=== PATIENT | female | born 2000 | race Two or more races ===

== ENCOUNTER 2022-05-31 22:15 | Emergency (ER) | payer MEDICAID ==
[~2022-05-31] VITALS: Ht 165.1 cm; Wt 68.2 kg
[2022-05-31] MEDS ORDERED: METOCLOPRAMIDE HCL 5MG/ml INJ 2ml VIAL IM ONE (22:45)
[2022-05-31] MEDS ORDERED: diphenhdrAMINE HCL 50 MG/1 ML VL IM ONE (22:45)
[2022-05-31] MEDS ORDERED: KETOROLAC TROMETH 60MG/2ML VIAL IM ONE (22:45)
[2022-06-01 04:35] VITALS: BP 120/68
== END 2022-06-01 04:38 | disposition home or self-care (01) ==
LOC: ER 22:17
DX: G43.909 Migraine, unspecified, not intractable, without status migrainosus (principal)
CPT/HCPCS: 70450; 96372; 99284; J1200; J1885; J2765

== ENCOUNTER 2022-11-20 23:13 | Emergency (ER) | payer MEDICAID, OTHER ==
[~2022-11-20] VITALS: Ht 165.1 cm; Wt 74.0 kg
[2022-11-21 00:09] VITALS: BP 134/76
[2022-11-21] MEDS ORDERED: BENZLOZ2 MT (01:27)
[2022-11-21] MEDS ORDERED: ALBUAER3 IN (01:27)
[2022-11-21] MEDS ORDERED: PRED20TA2 PO (01:27)
[2022-11-21] MEDS ORDERED: CLIN300C70 PO (01:27)
[2022-11-21] MEDS ORDERED: DexAMETHasone SOD PHOS 10MG/1ML VIAL INJ IM ONE (01:30)
[2022-11-21] MEDS ORDERED: cefTRIAXone SOD 1,000 MG VL IM ONE (01:30)
== END 2022-11-21 01:41 | disposition home or self-care (01) ==
LOC: ER 23:13
DX: J20.9 Acute bronchitis, unspecified (principal); J03.90 Acute tonsillitis, unspecified
CPT/HCPCS: 71045; 96372; 99284; J0696; J1100